=== PATIENT | male | born 1995 | race African-American/Black ===

== ENCOUNTER 2017-01-04 12:02 | Emergency (ER) | payer OTHER ==
[2017-01-04 12:21] VITALS: BP 112/62
[2017-01-04] MEDS ORDERED: FLUORESCEIN OPHTH TEST STRIP. ONE (12:41)
[2017-01-04] MEDS ORDERED: FLUORESCEIN OPHTH TEST STRIP. OS ONE (12:45)
[2017-01-04] MEDS ORDERED: TETRACAINE 0.5% OPHTH SOLUTION 4ML BOTTLE. OS ONE (12:45)
[2017-01-04] MEDS ORDERED: EYE-STREAM OPHTH SOLUTION 120 ML BOTTLE. ONE (12:50)
[2017-01-04] MEDS ORDERED: EYE-STREAM OPHTH SOLUTION 120 ML BOTTLE. OS ONE (13:00)
[2017-01-04] MEDS ORDERED: HYDROCODONE/APAP 5/325MG TABLET. PO ONE (13:30)
[2017-01-04] MEDS ORDERED: ERYT1OIN6 EACHEYE (13:33)
--- NOTE | 2017-01-04 13:36 | PHYS DOC ---
Past Medical History Past Medical History: No Pertinent History Past Surgical History: Other Additional Past Surgical Histo: HERNIA REPAIR Alcohol Use: None Drug Use: Marijuana Adult General Chief Complaint Chief Complaint: FOREIGN BODY/EYES HPI HPI Patient is a 21 year old male who presents with left eye pain after getting tetrahydrofuran in his eye shortly prior to arrival. This is a pH 7 liquid solvent used to melt plastic together administered with small low pressure syringe. This splashed into his eye when he was administering it to plastic. Pain is constant, burning, severe, constant blurred vision. He denies face burn. He irrigated for approx 30 min prior to arrival. Review of Systems Review of Systems Constitutional: Denies fever or chills [] Eyes: Denies change in visual acuity, redness, or eye pain [] HENT: Denies nasal congestion or sore throat [] Respiratory: Denies cough or shortness of breath [] Cardiovascular: No additional information not addressed in HPI [] GI: Denies abdominal pain, nausea, vomiting, bloody stools or diarrhea [] : Denies dysuria or hematuria [] Musculoskeletal: Denies back pain or joint pain [] Integument: Denies rash or skin lesions [] Neurologic: Denies headache, focal weakness or sensory changes [] Endocrine: Denies polyuria or polydipsia [] Current Medications Current Medications Current Medications Medications (Trade) Dose Ordered Sig/Karina Start Time Stop Time Status Last Admin Dose Admin Eye Irrigation Solution (Eye-Stream) 120 ml STK-MED ONCE 01/04/17 12:50 01/04/17 12:51 DC Fluorescein Sodium (Ful-Tierra) 1 strip 1X ONCE 01/04/17 12:45 01/04/17 12:46 DC 01/04/17 12:46 1 STRIP Tetracaine HCl (Tetracaine) 1 drop 1X ONCE 01/04/17 12:45 01/04/17 12:46 DC 01/04/17 12:42 1 DROP Allergies Allergies Allergies Coded Allergies Type Severity Reaction Last Updated Verified No Known Drug Allergies 01/04/17 No Physical Exam Physical Exam Constitutional: Well developed, well nourished, no acute distress, non-toxic appearance. [] HENT: Normocephalic, atraumatic, bilateral external ears normal, oropharynx moist, no oral exudates, nose normal. [] Eyes: PERRLA, EOMI. Bilateral corneas clear, Left conjunctiva and sclera hyperemic without edema, has long/thin white foreign body externally on eye that was removed with cotton swab, no worsening uptake, no obvious ulceration or abrasion [] Neck: Normal range of motion, supple. [] Cardiovascular:Heart rate regular rhythm [] Lungs & Thorax: Bilateral breath sounds clear to auscultation [] Abdomen: Bowel sounds normal, soft, no tenderness. [] Skin: Warm, dry, no erythema, no rash. [] Back: Normal ROM. [] Extremities: ROM intact, no edema. [] Neurologic: Alert and oriented X 3, normal motor function, normal sensory function, no focal deficits noted. [] Psychologic: Affect normal, judgement normal, mood normal. [] Current Patient Data Vital Signs Vital Signs Date Time Temp Pulse Resp B/P Pulse Ox O2 Delivery O2 Flow Rate FiO2 01/04/17 12:21 98.0 66 20 112/62 98 Room Air 98.0 Course & Med Decision Making Course & Med Decision Making Pertinent Labs and Imaging studies reviewed. (See chart for details) Feeling better after tetracaine and irrigation. Discussed need for close follow- up with ophthalmology. Return precautions given. He understands and agrees with plan. Dragon Disclaimer Dragon Disclaimer This electronic medical record was generated, in whole or in part, using a voice recognition dictation system. Departure Departure Impression: Primary Impression: Foreign body of eye, external, left Disposition: 01 HOME, SELF-CARE Condition: STABLE Referrals: JOHN WESTFALL MD Patient Instructions: Eye - Foreign Body, [id number] Additional Instructions: Take Tylenol or ibuprofen as needed for pain. Use erythromycin eye ointment to help prevent infection. Follow-up with ophthalmology clinic within 2 days. Please call for appointment. Return for any concerns. Scripts Erythromycin Base (Erythromycin)3.5 Gm Oint...g.1 Nan E #3.5 GM Prov:Aleena BRUSH MD 01/04/17 Problem Qualifiers Primary Impression: Foreign body of eye, external, left Encounter type: initial encounter Qualified Code: T15.92XA - Foreign body on external eye, part unspecified, left eye, initial encounter Aleena BRUSH MD Jan 04, 2017 13:36
== END 2017-01-04 13:50 | disposition home or self-care (01) ==
LOC: ER 12:02
DX: T15.92XA Foreign body on external eye, part unspecified, left eye, initial encounter (principal); F12.10 Cannabis abuse, uncomplicated; X58.XXXA Exposure to other specified factors, initial encounter; Y93.89 Activity, other specified; Y92.89 Other specified places as the place of occurrence of the external cause; Y99.8 Other external cause status
CPT/HCPCS: 99283